=== PATIENT | male | born 1945 | race Two or more races ===

== ENCOUNTER 2023-12-20 08:34 | Inpatient (IN) | payer OTHER ==
[~2023-12-20] VITALS: Ht 170.2 cm; Wt 72.4 kg
[2023-12-20 10:45] VITALS: BP 139/60; TEMP 99.2; O2SAT 96
[2023-12-20] MEDS ORDERED: MOM 30ML SUSPENSION UDC PO PRN (10:45)
[2023-12-20] MEDS ORDERED: ONDANSETRON 4MG TAB PO PRN (10:45)
[2023-12-20] MEDS ORDERED: FLEET ENEMA PR PRN (10:45)
[2023-12-20] MEDS ORDERED: BISACODYL 10MG SUPP PR PRN (10:45)
[2023-12-20] MEDS ORDERED: MAALOX 30 ML SUSP *UDC PO PRN (10:45)
[2023-12-20] MEDS ORDERED: SIMETHICONE 80MG CHEW TAB PO PRN (10:45)
[2023-12-20] MEDS ORDERED: ALBUTEROL SULFATE 2.5MG/0.5ML INH NEB SOLN NEB PRN (10:55)
[2023-12-20] MEDS ORDERED: FLOM0.4C39 PO (14:12)
[2023-12-20] MEDS ORDERED: ENTR1TAB4 PO (14:12)
[2023-12-20] MEDS ORDERED: ASPI81TA26 PO (14:12)
[2023-12-20] MEDS ORDERED: VENTAER INH (14:12)
[2023-12-20] MEDS ORDERED: ELIQ5TAB PO (14:12)
[2023-12-20] MEDS ORDERED: ALBU2.5V10 INH (14:12)
[2023-12-20] MEDS ORDERED: CARV12.5 PO (14:12)
[2023-12-20] MEDS ORDERED: SENN-186 PO (14:12)
[2023-12-20] MEDS ORDERED: BISA10SU4 PR (14:12)
[2023-12-20] MEDS ORDERED: MIRA3350 PO (14:12)
[2023-12-20] MEDS ORDERED: SIME40DR23 PO (14:12)
[2023-12-20] MEDS ORDERED: FENO48TA8 PO (14:12)
[2023-12-20] MEDS ORDERED: HOME MED LIST COMPLETE! XX SCH (14:15)
[2023-12-20] MEDS: BISACODYL 10MG SUPP PR SCH (14:48)
[2023-12-20 20:00] VITALS: BP 113/53; TEMP 98.7; O2SAT 95
[2023-12-20] MEDS: DOCUSATE SODIUM 100MG CAPSULE PO SCH (20:53)
[2023-12-20] MEDS: APIXABAN 5 MG TAB (ELIQUIS) PO SCH (20:54)
[2023-12-20] MEDS: CARVedilol 12.5 MG TAB PO SCH (20:54)
[2023-12-20] MEDS: TAMSULOSIN 0.4 MG CAP PO SCH (20:55)
[2023-12-20] MEDS: ENTRESTO 97-103MG TABLET (SACUBITRIL/VALSARTAN) PO SCH (20:55)
[2023-12-20] MEDS: SENNA 8.6 MG TAB (SENOKOT) PO SCH (20:55)
[2023-12-21 04:00] VITALS: BP 115/55; TEMP 98.6; O2SAT 95
[2023-12-21 07:45] LABS: BASO # 0.1 10^3/uL (0.0-0.2); BASO % 0.4 % (0.0-1.0); EOS # 0.1 10^3/uL (0.0-0.5); EOS % 0.8 % (0.0-3.0); HEMATOCRIT 31.5 % (42.0-52.0); HEMOGLOBIN 10.1 g/dl (13.5-17.5); LYMPH # 1.2 10^3/uL (1.5-5.0); MEAN CORPUSCULAR HGB CONC 32.1 g/dl (32.0-36.5); MEAN CORPUSCULAR VOLUME 99.7 fl (80.0-96.0); MONO # 0.9 10^3/uL (0.0-0.8); NEUTROPHILS % 81.2 % (36.0-66.0); PLATELET COUNT, AUTOMATED 435 10^3/uL (150-450); RED BLOOD COUNT 3.16 10^6/uL (4.30-6.10); WHITE BLOOD COUNT 12.3 10^3/uL (4.0-10.0)
[2023-12-21 08:16] LABS: BLOOD UREA NITROGEN 13 MG/DL (9-23); CALCIUM LEVEL 7.9 MG/DL (8.3-10.6); CARBON DIOXIDE LEVEL 28 MMOL/L (20-31); CHLORIDE LEVEL 105 MMOL/L (98-107); CREATININE FOR GFR 0.68 MG/DL (0.70-1.30); GLOMERULAR FILTRATION RATE > 60.0 (>42); GLUCOSE, FASTING 108 MG/DL (74-106); POTASSIUM SERUM 4.3 MMOL/L (3.5-5.1); SODIUM LEVEL 136 MMOL/L (136-145)
[2023-12-21] MEDS ORDERED: TAMSULOSIN 0.4 MG CAP PO SCH (09:00)
[2023-12-21] MEDS: FLUBLOK(EGGFREE) TRIVAL(24-25) VACCINE PF 0.5ML SYRINGE 18YRS & OLDER IM.IMMUN ONE (09:00)
[2023-12-21] MEDS: OMEPRAZOLE 20MG CAP PO SCH (09:22)
[2023-12-21] MEDS: ASPIRIN 81MG ENTERIC TABLET PO SCH (09:23)
[2023-12-21] MEDS: ACETAMINOPHEN 500 MG TAB PO PRN (09:23)
[2023-12-21] MEDS: FENOFIBRATE 48MG TABLET (TRICOR) PO SCH (09:24)
[2023-12-21] MEDS: MIRALAX *UNIT DOSE* 17GM PACKET PO SCH (09:24)
[2023-12-21 12:00] VITALS: BP 99/55; TEMP 97.4; O2SAT 96
[2023-12-21 20:00] VITALS: BP 125/58; TEMP 99; O2SAT 90
[2023-12-22 04:00] VITALS: BP 127/62; TEMP 98.6; O2SAT 96
[2023-12-22 06:04] LABS: BASO % 0.4 % (0.0-1.0); EOS # 0.1 10^3/uL (0.0-0.5); EOS % 1.3 % (0.0-3.0); HEMATOCRIT 27.3 % (42.0-52.0); LYMPH # 1.1 10^3/uL (1.5-5.0); LYMPH % 10.5 % (24.0-44.0); MEAN CORPUSCULAR HEMOGLOBIN 32.1 pg (27.0-33.0); MEAN CORPUSCULAR VOLUME 97.5 fl (80.0-96.0); MONO # 0.7 10^3/uL (0.0-0.8); MONO % 6.8 % (2.0-8.0); NEUTROPHILS # 8.5 10^3/uL (1.5-8.5); NEUTROPHILS % 80.6 % (36.0-66.0); PLATELET COUNT, AUTOMATED 401 10^3/uL (150-450); WHITE BLOOD COUNT 10.5 10^3/uL (4.0-10.0)
[2023-12-22] MEDS: ASPIRIN 81MG CHEW TABLET PO SCH (08:27)
[2023-12-22] MEDS ORDERED: E-Z-PAQUE 96% w/w SUSP 176GM BTL As Ordered ONE (11:30)
[2023-12-22] MEDS ORDERED: SIMETHICONE 80MG CHEW TAB PO PRN (11:30)
[2023-12-22] MEDS ORDERED: VARIBAR PUDDING 40% w/v 230ML TUBE As Ordered ONE (11:30)
[2023-12-22] MEDS ORDERED: BARIUM SULFATE 700 MG TABLET (E-Z-DISK) As Ordered ONE (11:30)
[2023-12-22] MEDS ORDERED: VARIBAR NECTAR 40% w/v 240ML SUSP BTL As Ordered ONE (11:30)
[2023-12-22 12:00] VITALS: BP 103/53; TEMP 97.9; O2SAT 84
[2023-12-22 12:30] VITALS: O2SAT 95
[2023-12-22] MEDS: BACTRIM 160MG/800MG DS TAB PO ONE (12:37)
[2023-12-22 19:34] VITALS: BP 145/66; TEMP 99.2; O2SAT 95
[2023-12-22] MEDS: BACTRIM 160MG/800MG DS TAB PO SCH (20:20)
[2023-12-23 04:40] VITALS: BP 122/56; TEMP 97.7; O2SAT 93
[2023-12-23 12:00] VITALS: BP 133/74; TEMP 98.1; O2SAT 97
[2023-12-23 19:49] VITALS: BP 135/61; TEMP 97.9; O2SAT 97
[2023-12-24 04:48] VITALS: BP 128/59; TEMP 97.9; O2SAT 93
[2023-12-24 12:00] VITALS: BP 95/46; TEMP 98.5; O2SAT 95
[2023-12-24 13:24] VITALS: BP 114/56
[2023-12-24 20:03] VITALS: BP 140/63; TEMP 98.6; O2SAT 94
[2023-12-25 04:37] VITALS: BP 145/63; TEMP 97.6; O2SAT 94
[2023-12-25 12:00] VITALS: BP 102/58; TEMP 97.7; O2SAT 88
[2023-12-25 20:00] VITALS: BP 130/66; TEMP 98.6; O2SAT 92
[2023-12-26 04:00] VITALS: BP 124/58; TEMP 98.6; O2SAT 91
[2023-12-26 12:00] VITALS: BP 102/48; TEMP 97.4; O2SAT 88
[2023-12-26] MEDS: D5W/0.45% SODIUM CHLORIDE 1,000 ML IV SCH (12:43)
[2023-12-26 20:00] VITALS: BP 142/63; TEMP 97.6; O2SAT 95
[2023-12-27 04:00] VITALS: BP 115/57; TEMP 97.7; O2SAT 93
[2023-12-27 12:00] VITALS: BP 91/52; TEMP 97.5; O2SAT 94
[2023-12-27 17:30] VITALS: BP 141/65; O2SAT 94
[2023-12-27 20:18] VITALS: BP 132/66; TEMP 98.1; O2SAT 95
[2023-12-28 04:32] VITALS: BP 135/68; TEMP 98; O2SAT 95
[2023-12-28 12:00] VITALS: BP 116/56; TEMP 97.6; O2SAT 95
[2023-12-28 20:00] VITALS: BP 130/57; TEMP 97.6; O2SAT 95
[2023-12-29 04:00] VITALS: BP 114/56; TEMP 97.3; O2SAT 94
[2023-12-29 12:00] VITALS: TEMP 96.7; O2SAT 90
[2023-12-29] MEDS: GASTROGRAFIN SOLUTION 30ML PO SCH (12:16)
[2023-12-29 12:24] LABS: BASO % 0.4 % (0.0-1.0); EOS # 0.1 10^3/uL (0.0-0.5); EOS % 1.8 % (0.0-3.0); HEMATOCRIT 33.8 % (42.0-52.0); HEMOGLOBIN 11.2 g/dl (13.5-17.5); LYMPH # 1.1 10^3/uL (1.5-5.0); LYMPH % 15.4 % (24.0-44.0); MEAN CORPUSCULAR HEMOGLOBIN 32.6 pg (27.0-33.0); MEAN CORPUSCULAR HGB CONC 33.1 g/dl (32.0-36.5); MEAN CORPUSCULAR VOLUME 98.3 fl (80.0-96.0); MONO # 0.5 10^3/uL (0.0-0.8); MONO % 7.1 % (2.0-8.0); NEUTROPHILS # 5.4 10^3/uL (1.5-8.5); NEUTROPHILS % 74.7 % (36.0-66.0); PLATELET COUNT, AUTOMATED 489 10^3/uL (150-450); RED BLOOD COUNT 3.44 10^6/uL (4.30-6.10); WHITE BLOOD COUNT 7.2 10^3/uL (4.0-10.0)
[2023-12-29 12:55] LABS: BLOOD UREA NITROGEN 5 MG/DL (9-23); CALCIUM LEVEL 8.4 MG/DL (8.3-10.6); CARBON DIOXIDE LEVEL 25 MMOL/L (20-31); CHLORIDE LEVEL 104 MMOL/L (98-107); GLOMERULAR FILTRATION RATE > 60.0 (>42); GLUCOSE, FASTING 106 MG/DL (74-106); POTASSIUM SERUM 3.5 MMOL/L (3.5-5.1); SODIUM LEVEL 138 MMOL/L (136-145)
[2023-12-29] MEDS ORDERED: ISOVUE-370 76% 100ML VIAL As Ordered ONE (13:56)
[2023-12-29 20:00] VITALS: BP 128/64; TEMP 98.1; O2SAT 96
[2023-12-29] MEDS ORDERED: GLUCOSE 4 GM CHEW PO PRN (23:00)
[2023-12-29] MEDS ORDERED: DEXTROSE 50% 50ML SYRINGE IV PRN (23:00)
[2023-12-29] MEDS ORDERED: GLUCAGON INJ 1MG VIAL SC PRN (23:00)
[2023-12-29] MEDS: D5W/0.45% SODIUM CHLORIDE 1,000 ML IV SCH (23:46)
[2023-12-30 04:00] VITALS: BP 134/63; TEMP 97.8; O2SAT 96
[2023-12-30 06:48] LABS: BASO % 0.7 % (0.0-1.0); EOS # 0.2 10^3/uL (0.0-0.5); EOS % 3.1 % (0.0-3.0); HEMATOCRIT 28.4 % (42.0-52.0); LYMPH # 1.1 10^3/uL (1.5-5.0); LYMPH % 20.5 % (24.0-44.0); MEAN CORPUSCULAR HEMOGLOBIN 30.9 pg (27.0-33.0); MEAN CORPUSCULAR HGB CONC 31.7 g/dl (32.0-36.5); MEAN CORPUSCULAR VOLUME 97.6 fl (80.0-96.0); MONO # 0.4 10^3/uL (0.0-0.8); MONO % 7.8 % (2.0-8.0); NEUTROPHILS # 3.7 10^3/uL (1.5-8.5); NEUTROPHILS % 67.5 % (36.0-66.0); RED BLOOD COUNT 2.91 10^6/uL (4.30-6.10); WHITE BLOOD COUNT 5.5 10^3/uL (4.0-10.0)
[2023-12-30 06:50] LABS: PLATELET COUNT, AUTOMATED 396 10^3/uL (150-450)
[2023-12-30 07:04] LABS: ALBUMIN 1.7 G/DL (3.2-5.2); ALKALINE PHOSPHATASE 73 U/L (40-129); ALT/SGPT 16 U/L (7.0-40); AST/SGOT 17 U/L (<34); BILIRUBIN,TOTAL 0.3 MG/DL (0.3-1.2); BLOOD UREA NITROGEN < 5 MG/DL (9-23); CALCIUM LEVEL 7.9 MG/DL (8.3-10.6); CARBON DIOXIDE LEVEL 28 MMOL/L (20-31); CHLORIDE LEVEL 106 MMOL/L (98-107); CREATININE FOR GFR 0.64 MG/DL (0.70-1.30); GLOMERULAR FILTRATION RATE > 60.0 (>42); GLUCOSE, FASTING 123 MG/DL (74-106); MAGNESIUM LEVEL 1.7 MG/DL (1.8-2.4); POTASSIUM SERUM 2.9 MMOL/L (3.5-5.1); SODIUM LEVEL 139 MMOL/L (136-145); TOTAL PROTEIN 4.5 G/DL (5.7-8.2)
[2023-12-30] MEDS: POTASSIUM CHLORIDE 10MEQ SR TABLET PO SCH (08:28)
[2023-12-30] MEDS: KCL 10MEQ/100ML SWI (KRUN) 10 MEQ in IV 1 EA IV SCH (08:37)
[2023-12-30] MEDS ORDERED: KCL 40MEQ IN D5/0.45NS 1000ML 1,000 ML IV SCH (10:00)
[2023-12-30] MEDS ORDERED: FLEET ENEMA PR PRN (10:15)
[2023-12-30] MEDS: AMINO AC/ELECTROLYTE/DEX/CALC 1,000 ML IV SCH (11:40)
[2023-12-30 12:00] VITALS: BP 128/58; TEMP 98.1; O2SAT 97
[2023-12-30] MEDS: FUROSEMIDE 40MG/4ML VIAL IV ONE (15:08)
[2023-12-30 17:47] LABS: BLOOD UREA NITROGEN < 5 MG/DL (9-23); CALCIUM LEVEL 8.2 MG/DL (8.3-10.6); CARBON DIOXIDE LEVEL 29 MMOL/L (20-31); CHLORIDE LEVEL 104 MMOL/L (98-107); CREATININE FOR GFR 0.62 MG/DL (0.70-1.30); GLOMERULAR FILTRATION RATE > 60.0 (>42); GLUCOSE, FASTING 119 MG/DL (74-106); POTASSIUM SERUM 3.7 MMOL/L (3.5-5.1); SODIUM LEVEL 138 MMOL/L (136-145)
[2023-12-30] MEDS: FAT EMULSION IV 250 ML IV ONE (17:51)
[2023-12-30 20:00] VITALS: BP 140/67; TEMP 98.4; O2SAT 92; O2SAT 97
[2023-12-31 04:00] VITALS: BP 145/64; TEMP 98.1; O2SAT 92
[2023-12-31] MEDS: FUROSEMIDE 40MG/4ML VIAL IV ONE (09:34)
[2023-12-31 12:00] VITALS: BP 122/60; TEMP 97.2; O2SAT 98
[2023-12-31] MEDS: FAT EMULSION IV 250 ML IV ONE (18:14)
[2023-12-31 19:54] VITALS: BP 148/69; TEMP 98.1; O2SAT 90
[2024-01-01 05:07] VITALS: BP 155/69; TEMP 97.2; O2SAT 94
[2024-01-01 06:46] LABS: BASO % 0.4 % (0.0-1.0); EOS # 0.2 10^3/uL (0.0-0.5); EOS % 2.1 % (0.0-3.0); HEMATOCRIT 29.5 % (42.0-52.0); HEMOGLOBIN 9.6 g/dl (13.5-17.5); LYMPH # 1.1 10^3/uL (1.5-5.0); LYMPH % 15.6 % (24.0-44.0); MEAN CORPUSCULAR HEMOGLOBIN 31.6 pg (27.0-33.0); MEAN CORPUSCULAR HGB CONC 32.5 g/dl (32.0-36.5); MONO # 0.6 10^3/uL (0.0-0.8); NEUTROPHILS # 5.4 10^3/uL (1.5-8.5); NEUTROPHILS % 73.6 % (36.0-66.0); PLATELET COUNT, AUTOMATED 408 10^3/uL (150-450); RED BLOOD COUNT 3.04 10^6/uL (4.30-6.10); WHITE BLOOD COUNT 7.3 10^3/uL (4.0-10.0)
[2024-01-01 07:31] LABS: ALKALINE PHOSPHATASE 85 U/L (40-129); ALT/SGPT 19 U/L (7.0-40); AST/SGOT 22 U/L (<34); BILIRUBIN,TOTAL 0.2 MG/DL (0.3-1.2); BLOOD UREA NITROGEN 9 MG/DL (9-23); CARBON DIOXIDE LEVEL 29 MMOL/L (20-31); CHLORIDE LEVEL 102 MMOL/L (98-107); GLOMERULAR FILTRATION RATE > 60.0 (>42); GLUCOSE, FASTING 156 MG/DL (74-106); MAGNESIUM LEVEL 1.7 MG/DL (1.8-2.4); PHOSPHORUS LEVEL 3.2 MG/DL (2.4-5.1); POTASSIUM SERUM 4.3 MMOL/L (3.5-5.1); SODIUM LEVEL 136 MMOL/L (136-145); TOTAL PROTEIN 4.8 G/DL (5.7-8.2)
[2024-01-01 12:00] VITALS: BP 110/59; TEMP 97.2; O2SAT 92
[2024-01-01] MEDS: FAT EMULSION IV 250 ML IV ONE (17:42)
[2024-01-01 20:09] VITALS: BP 139/65; TEMP 96.9; O2SAT 90
[2024-01-02 04:51] VITALS: BP 138/61; TEMP 97.6; O2SAT 92
[2024-01-02 07:40] VITALS: BP 134/60
[2024-01-02] MEDS: FAT EMULSION IV 250 ML IV ONE (17:55)
[2024-01-02 20:05] VITALS: BP 150/66; TEMP 97.2; O2SAT 93
[2024-01-03 04:00] VITALS: BP 151/70; TEMP 97.9; O2SAT 96
[2024-01-03 12:00] VITALS: BP 139/65; TEMP 97.9; O2SAT 92
[2024-01-03] MEDS: FAT EMULSION IV 250 ML IV ONE (18:39)
[2024-01-03 20:00] VITALS: BP 158/74; TEMP 98.4; O2SAT 92
[2024-01-04 04:00] VITALS: BP 134/64; TEMP 98.7; O2SAT 92
[2024-01-04] MEDS ORDERED: fentaNYL 100 MCG/2 ML INJECTION IV PRN ×2 (07:35→10:05)
[2024-01-04] MEDS: ALBUTEROL SULFATE 2.5MG/0.5ML INH NEB SOLN INH ONE ×2 (07:35→10:05)
[2024-01-04] MEDS ORDERED: ONDANSETRON 4MG 2ML VIAL IV PRN ×2 (07:35→10:05)
[2024-01-04] MEDS ORDERED: METOCLOPRAMIDE INJ 10MG/2ML VIAL IV PRN ×2 (07:35→10:05)
[2024-01-04] MEDS ORDERED: oxyCODONE 5MG TAB PO PRN (07:35)
[2024-01-04] MEDS ORDERED: HYDROMORPHONE HCL 0.5 MG/ 0.5 ML SYRINGE IV PRN ×2 (07:35→10:05)
[2024-01-04] MEDS: FLEET ENEMA PR ONE (08:40)
[2024-01-04] MEDS: LR 1,000 ML IV SCH (10:05)
[2024-01-04] MEDS ORDERED: propofoL 200 MG/20 ML VIAL As Ordered ONE (11:46)
[2024-01-04] MEDS ORDERED: LIDOCAINE 2% 100MG/5ML SDV (FOR ANES.) As Ordered ONE (11:46)
[2024-01-04] MEDS ORDERED: PHENYLephrine 500MCG 5ML (100MCG/ML) SYRINGE As Ordered ONE (11:46)
[2024-01-04 12:00] VITALS: BP_SYST 128; BP_SYST 140; BP_DIAS 64; BP_DIAS 67; TEMP 99.3; O2SAT 93
[2024-01-04] MEDS: FAT EMULSION IV 250 ML IV ONE (18:00)
[2024-01-04 20:00] VITALS: BP 152/70; TEMP 98.5; O2SAT 90
[2024-01-05 04:00] VITALS: BP 118/58; TEMP 98.1; O2SAT 91
[2024-01-05 12:00] VITALS: BP 144/65; TEMP 98.3; O2SAT 96
[2024-01-05] MEDS: DICLOFENAC EPOLAMINE 1.3% PATCH TOP SCH (12:38)
[2024-01-05] MEDS: D5W 1,000 ML IV SCH (14:18)
[2024-01-05] MEDS: FAT EMULSION IV 250 ML IV ONE (18:36)
[2024-01-05 19:39] VITALS: BP 162/74; TEMP 97.6; O2SAT 94
[2024-01-06 04:13] VITALS: BP 119/56; TEMP 98.1; O2SAT 94
[2024-01-06 12:00] VITALS: BP 138/63; TEMP 98.3; O2SAT 96
[2024-01-06] MEDS: FAT EMULSION IV 250 ML IV ONE (17:31)
[2024-01-06 20:00] VITALS: BP 158/71; TEMP 98.2; O2SAT 94
[2024-01-07 04:00] VITALS: BP 116/57; TEMP 97.9; O2SAT 96
[2024-01-07] MEDS: MAG SULF 1GM/100ML (MAG RUN) 1 GM in IV 1 EA IV ONE (11:04)
[2024-01-07 12:00] VITALS: BP 102/46; TEMP 97.9; O2SAT 97
[2024-01-07 14:45] LABS: BASO % 0.5 % (0.0-1.0); EOS # 0.1 10^3/uL (0.0-0.5); EOS % 2.3 % (0.0-3.0); HEMATOCRIT 31.1 % (42.0-52.0); HEMOGLOBIN 10.3 g/dl (13.5-17.5); LYMPH # 1.1 10^3/uL (1.5-5.0); LYMPH % 19.4 % (24.0-44.0); MEAN CORPUSCULAR HEMOGLOBIN 31.9 pg (27.0-33.0); MEAN CORPUSCULAR HGB CONC 33.1 g/dl (32.0-36.5); MEAN CORPUSCULAR VOLUME 96.3 fl (80.0-96.0); MONO # 0.5 10^3/uL (0.0-0.8); MONO % 9.4 % (2.0-8.0); NEUTROPHILS # 3.9 10^3/uL (1.5-8.5); NEUTROPHILS % 68.2 % (36.0-66.0); PLATELET COUNT, AUTOMATED 284 10^3/uL (150-450); RED BLOOD COUNT 3.23 10^6/uL (4.30-6.10); WHITE BLOOD COUNT 5.8 10^3/uL (4.0-10.0)
[2024-01-07 15:15] LABS: ALBUMIN 2.1 G/DL (3.2-5.2); ALKALINE PHOSPHATASE 96 U/L (40-129); ALT/SGPT 14 U/L (7.0-40); AST/SGOT 14 U/L (<34); BILIRUBIN,TOTAL 0.3 MG/DL (0.3-1.2); BLOOD UREA NITROGEN 10 MG/DL (9-23); CALCIUM LEVEL 8.4 MG/DL (8.3-10.6); CARBON DIOXIDE LEVEL 26 MMOL/L (20-31); CHLORIDE LEVEL 103 MMOL/L (98-107); CREATININE FOR GFR 0.67 MG/DL (0.70-1.30); GLOMERULAR FILTRATION RATE > 60.0 (>42); GLUCOSE, FASTING 124 MG/DL (74-106); SODIUM LEVEL 133 MMOL/L (136-145); TOTAL PROTEIN 5.3 G/DL (5.7-8.2)
[2024-01-07] MEDS: FAT EMULSION IV 250 ML IV ONE (17:23)
[2024-01-07 20:00] VITALS: BP 131/63; TEMP 98.9; O2SAT 96
[2024-01-08 04:00] VITALS: BP 122/57; TEMP 98.5; O2SAT 95
[2024-01-08 07:26] LABS: BASO # 0.1 10^3/uL (0.0-0.2); BASO % 0.8 % (0.0-1.0); EOS # 0.2 10^3/uL (0.0-0.5); HEMATOCRIT 31.2 % (42.0-52.0); HEMOGLOBIN 10.3 g/dl (13.5-17.5); LYMPH % 17.1 % (24.0-44.0); MEAN CORPUSCULAR HEMOGLOBIN 31.8 pg (27.0-33.0); MEAN CORPUSCULAR VOLUME 96.3 fl (80.0-96.0); MONO # 0.5 10^3/uL (0.0-0.8); MONO % 7.5 % (2.0-8.0); NEUTROPHILS # 4.3 10^3/uL (1.5-8.5); NEUTROPHILS % 71.3 % (36.0-66.0); PLATELET COUNT, AUTOMATED 294 10^3/uL (150-450); RED BLOOD COUNT 3.24 10^6/uL (4.30-6.10)
[2024-01-08 07:33] LABS: PHOSPHORUS LEVEL 3.9 MG/DL (2.4-5.1)
[2024-01-08 08:43] VITALS: BP 131/60
[2024-01-08 10:22] LABS: BLOOD UREA NITROGEN 10 MG/DL (9-23); CALCIUM LEVEL 8.4 MG/DL (8.3-10.6); CARBON DIOXIDE LEVEL 26 MMOL/L (20-31); CHLORIDE LEVEL 104 MMOL/L (98-107); CREATININE FOR GFR 0.59 MG/DL (0.70-1.30); GLOMERULAR FILTRATION RATE > 60.0 (>42); GLUCOSE, FASTING 137 MG/DL (74-106); MAGNESIUM LEVEL 2.1 MG/DL (1.8-2.4); POTASSIUM SERUM 4.7 MMOL/L (3.5-5.1); SODIUM LEVEL 137 MMOL/L (136-145)
[2024-01-08] MEDS ORDERED: ACET-683 PO (11:38)
[2024-01-08] MEDS ORDERED: POTA-136 PO (11:38)
[2024-01-08] MEDS ORDERED: DICL1PAT6 TOP (11:38)
[2024-01-08] MEDS ORDERED: OMEP-173 PO (11:38)
[2024-01-08] MEDS ORDERED: FLOM0.4C39 PO (11:38)
[2024-01-08] MEDS ORDERED: LIDOCAINE 1% MDV 20ML VIAL As Ordered ONE (11:50)
[2024-01-08 12:00] VITALS: BP 128/62; TEMP 97.6; O2SAT 97
[2024-01-08] MEDS ORDERED: AMINO AC/ELECTROLYTE/DEX/CALC 1,000 ML IV SCH (18:00)
[2024-01-08] MEDS ORDERED: FAT EMULSION IV 250 ML IV ONE ×2 (18:00)
[2024-01-08] MEDS ORDERED: INSULIN LISPRO (NovoLOG) PER UNIT SC SCH (18:00)
== END 2024-01-08 15:00 | disposition short-term general hospital (02) | DRG 64 ==
LOC: EEVIPCON 10:35 → M PM&R 10:35
PROVIDERS: ADMIT Physical Medicine & Rehabilitation; ATTEND Physical Medicine & Rehabilitation
PROC: 0DJD8ZZ Inspection of Lower Intestinal Tract, Via Natural or Artificial Opening Endoscopic (ICD-10-PCS; 2024-01-04)
PROC: 02HV33Z Insertion of Infusion Device into Superior Vena Cava, Percutaneous Approach (ICD-10-PCS; principal; 2024-01-08 12:00)
DX: I63.512 Cerebral infarction due to unspecified occlusion or stenosis of left middle cerebral artery (principal); J96.01 Acute respiratory failure with hypoxia; K56.7 Ileus, unspecified; K59.39 Other megacolon; N39.0 Urinary tract infection, site not specified; I50.22 Chronic systolic (congestive) heart failure; G81.91 Hemiplegia, unspecified affecting right dominant side; E46 Unspecified protein-calorie malnutrition; B96.20 Unspecified Escherichia coli [E. coli] as the cause of diseases classified elsewhere; I48.0 Paroxysmal atrial fibrillation; E87.6 Hypokalemia; R19.7 Diarrhea, unspecified; T36.95XA Adverse effect of unspecified systemic antibiotic, initial encounter; I11.0 Hypertensive heart disease with heart failure; I25.10 Atherosclerotic heart disease of native coronary artery without angina pectoris; Z74.1 Need for assistance with personal care; I25.2 Old myocardial infarction; E78.5 Hyperlipidemia, unspecified; N40.0 Benign prostatic hyperplasia without lower urinary tract symptoms; R33.9 Retention of urine, unspecified; R13.10 Dysphagia, unspecified; R31.9 Hematuria, unspecified; Z74.09 Other reduced mobility; Z95.5 Presence of coronary angioplasty implant and graft; Z79.01 Long term (current) use of anticoagulants; Z90.49 Acquired absence of other specified parts of digestive tract; Z79.899 Other long term (current) drug therapy; Z79.82 Long term (current) use of aspirin

== ENCOUNTER 2024-01-08 12:00 | Inpatient (IN) | payer OTHER ==
[~2024-01-08] VITALS: Ht 170.2 cm; Wt 74.0 kg
[~2024-01-08 12:00] MED LIST: ACET-683 PO; ALBU2.5V10 INH; ASPI81TA26 PO; BISA10SU4 PR; CARV12.5 PO; DICL1PAT6 TOP; ELIQ5TAB PO; ENTR1TAB4 PO; FENO48TA8 PO; FLOM0.4C39 PO; MIRA3350 PO; OMEP-173 PO; POTA-136 PO; SENN-186 PO; SIME40DR23 PO; VENTAER INH
[2024-01-08 15:32] VITALS: BP 130/52; TEMP 96.8; O2SAT 94
[2024-01-08 15:51] LABS: ALBUMIN 2.2 G/DL (3.2-5.2); BILIRUBIN,DIRECT 0.1 MG/DL (<0.4); BILIRUBIN,TOTAL 0.2 MG/DL (0.3-1.2); CALCIUM LEVEL 8.5 MG/DL (8.3-10.6); MAGNESIUM LEVEL 1.9 MG/DL (1.8-2.4); PHOSPHORUS LEVEL 4.1 MG/DL (2.4-5.1); TOTAL PROTEIN 5.2 G/DL (5.7-8.2)
[2024-01-08 17:18] LABS: PREALBUMIN 14.6 MG/DL (10.0-40.0)
[2024-01-08] MEDS: INSULIN LISPRO (NovoLOG) PER UNIT SC SCH (17:57)
[2024-01-08] MEDS: AMINO AC/ELECTROLYTE/DEX/CALC 1,000 ML IV SCH (18:37)
[2024-01-08] MEDS: FAT EMULSION IV 250 ML IV ONE (18:37)
[2024-01-08 19:42] VITALS: BP 134/65; TEMP 97.3; O2SAT 95
[2024-01-08] MEDS: DOCUSATE SODIUM 100MG CAPSULE PO SCH (20:39)
[2024-01-08] MEDS: TAMSULOSIN 0.4 MG CAP PO SCH (20:39)
[2024-01-08] MEDS: CARVedilol 12.5 MG TAB PO SCH (20:39)
[2024-01-08] MEDS: FENOFIBRATE 48MG TABLET (TRICOR) PO SCH (20:39)
[2024-01-08] MEDS: APIXABAN 5 MG TAB (ELIQUIS) PO SCH (20:39)
[2024-01-08 22:24] VITALS: BP 134/65; TEMP 97.3; O2SAT 95
[2024-01-09 04:20] VITALS: BP 137/54; TEMP 97.9; O2SAT 94
[2024-01-09 05:53] LABS: BASO % 0.4 % (0.0-1.0); EOS # 0.2 10^3/uL (0.0-0.5); EOS % 2.9 % (0.0-3.0); HEMATOCRIT 31.1 % (42.0-52.0); HEMOGLOBIN 10.2 g/dl (13.5-17.5); LYMPH # 1.1 10^3/uL (1.5-5.0); LYMPH % 15.4 % (24.0-44.0); MEAN CORPUSCULAR HEMOGLOBIN 31.6 pg (27.0-33.0); MEAN CORPUSCULAR HGB CONC 32.8 g/dl (32.0-36.5); MEAN CORPUSCULAR VOLUME 96.3 fl (80.0-96.0); MONO # 0.5 10^3/uL (0.0-0.8); MONO % 7.1 % (2.0-8.0); NEUTROPHILS # 5.1 10^3/uL (1.5-8.5); NEUTROPHILS % 73.6 % (36.0-66.0); PLATELET COUNT, AUTOMATED 312 10^3/uL (150-450); RED BLOOD COUNT 3.23 10^6/uL (4.30-6.10); WHITE BLOOD COUNT 6.9 10^3/uL (4.0-10.0)
[2024-01-09 06:27] LABS: ALBUMIN 2.1 G/DL (3.2-5.2); ALKALINE PHOSPHATASE 95 U/L (40-129); ALT/SGPT 19 U/L (7.0-40); AST/SGOT 25 U/L (<34); BILIRUBIN,TOTAL 0.3 MG/DL (0.3-1.2); BLOOD UREA NITROGEN 11 MG/DL (9-23); CALCIUM LEVEL 8.4 MG/DL (8.3-10.6); CARBON DIOXIDE LEVEL 28 MMOL/L (20-31); CHLORIDE LEVEL 103 MMOL/L (98-107); CREATININE FOR GFR 0.63 MG/DL (0.70-1.30); GLOMERULAR FILTRATION RATE > 60.0 (>42); GLUCOSE, FASTING 119 MG/DL (74-106); MAGNESIUM LEVEL 1.8 MG/DL (1.8-2.4); PHOSPHORUS LEVEL 3.7 MG/DL (2.4-5.1); POTASSIUM SERUM 4.1 MMOL/L (3.5-5.1); SODIUM LEVEL 134 MMOL/L (136-145); TOTAL PROTEIN 5.2 G/DL (5.7-8.2)
[2024-01-09] MEDS: BISACODYL 10MG SUPP PR SCH (09:00)
[2024-01-09] MEDS: ASPIRIN 81MG CHEW TABLET PO SCH (09:58)
[2024-01-09 12:00] VITALS: BP 126/55; TEMP 97.5; O2SAT 95
[2024-01-09] MEDS: FAT EMULSION IV 250 ML IV ONE (18:13)
[2024-01-09] MEDS: AMINO AC/ELECTROLYTE/DEX/CALC 1,000 ML IV SCH (18:13)
[2024-01-09] MEDS: INSULIN LISPRO (NovoLOG) PER UNIT SC SCH (18:37)
[2024-01-09 20:43] VITALS: BP 123/57; TEMP 97.7; O2SAT 95
[2024-01-10] VITALS (16 sets, daily range): BP systolic 60–134; BP diastolic 32–60; TEMP 97–98; O2SAT 88–100
[2024-01-10] MEDS: ACETAMINOPHEN 500 MG TAB PO PRN (00:02)
[2024-01-10 06:08] LABS: BASO % 0.8 % (0.0-1.0); EOS # 0.2 10^3/uL (0.0-0.5); EOS % 3.1 % (0.0-3.0); HEMOGLOBIN 10.5 g/dl (13.5-17.5); LYMPH # 1.1 10^3/uL (1.5-5.0); LYMPH % 22.2 % (24.0-44.0); MEAN CORPUSCULAR HEMOGLOBIN 31.5 pg (27.0-33.0); MEAN CORPUSCULAR HGB CONC 32.8 g/dl (32.0-36.5); MEAN CORPUSCULAR VOLUME 96.1 fl (80.0-96.0); MONO # 0.4 10^3/uL (0.0-0.8); MONO % 8.3 % (2.0-8.0); NEUTROPHILS # 3.3 10^3/uL (1.5-8.5); NEUTROPHILS % 65.2 % (36.0-66.0); PLATELET COUNT, AUTOMATED 305 10^3/uL (150-450); RED BLOOD COUNT 3.33 10^6/uL (4.30-6.10); WHITE BLOOD COUNT 5.1 10^3/uL (4.0-10.0)
[2024-01-10 06:40] LABS: ALBUMIN 2.2 G/DL (3.2-5.2); ALKALINE PHOSPHATASE 92 U/L (40-129); ALT/SGPT 22 U/L (7.0-40); AST/SGOT 21 U/L (<34); BILIRUBIN,TOTAL 0.3 MG/DL (0.3-1.2); BLOOD UREA NITROGEN 13 MG/DL (9-23); CALCIUM LEVEL 8.7 MG/DL (8.3-10.6); CARBON DIOXIDE LEVEL 28 MMOL/L (20-31); CHLORIDE LEVEL 103 MMOL/L (98-107); GLOMERULAR FILTRATION RATE > 60.0 (>42); GLUCOSE, FASTING 131 MG/DL (74-106); MAGNESIUM LEVEL 1.8 MG/DL (1.8-2.4); POTASSIUM SERUM 3.9 MMOL/L (3.5-5.1); SODIUM LEVEL 137 MMOL/L (136-145); TOTAL PROTEIN 5.3 G/DL (5.7-8.2)
[2024-01-10] MEDS: FAT EMULSION IV 250 ML IV ONE (18:06)
[2024-01-10] MEDS: MULTIVITAMIN -ADULT INJECTION 10 ML, ZINC/COPPER/MANGANESE/SELENIUM 1 ML in AMINO AC/EL... IV SCH (18:07)
[2024-01-10] MEDS: INSULIN LISPRO (NovoLOG) PER UNIT SC SCH (18:33)
[2024-01-10] MEDS: NS (Normal Saline) 0.9% 1,000 ML IV ONE (21:18)
[2024-01-10] MEDS ORDERED: diphenhydrAMINE 50MG/ML VIAL IV PRN (22:10)
[2024-01-10] MEDS: LR 1,000 ML IV SCH (22:45)
[2024-01-10] MEDS: methylPREDNISolone 125MG 2ML VIAL IV ONE (22:45)
[2024-01-10] MEDS: NOREPINEPHRINE 4MG IN D5 250ML 4 MG in IV 1 EA IV SCH (22:58)
[2024-01-10] MEDS: LR 1,000 ML IV ONE (23:41)
[2024-01-10 23:53] LABS: BLOOD UREA NITROGEN 18 MG/DL (9-23); CALCIUM LEVEL 8.4 MG/DL (8.3-10.6); CARBON DIOXIDE LEVEL 20 MMOL/L (20-31); CHLORIDE LEVEL 106 MMOL/L (98-107); CREATININE FOR GFR 0.91 MG/DL (0.70-1.30); GLOMERULAR FILTRATION RATE > 60.0 (>42); GLUCOSE, FASTING 123 MG/DL (74-106); POTASSIUM SERUM 3.9 MMOL/L (3.5-5.1); SODIUM LEVEL 136 MMOL/L (136-145)
[2024-01-11] VITALS (55 sets, daily range): BP systolic 80–130; BP diastolic 44–60; TEMP 97.6–98.5; O2SAT 89–99
[2024-01-11 00:14] LABS: BASO % 0.3 % (0.0-1.0); EOS % 0.3 % (0.0-3.0); HEMATOCRIT 41.2 % (42.0-52.0); LYMPH # 1.7 10^3/uL (1.5-5.0); LYMPH % 11.3 % (24.0-44.0); MEAN CORPUSCULAR HEMOGLOBIN 31.5 pg (27.0-33.0); MEAN CORPUSCULAR HGB CONC 32.3 g/dl (32.0-36.5); MEAN CORPUSCULAR VOLUME 97.6 fl (80.0-96.0); MONO % 6.5 % (2.0-8.0); NEUTROPHILS # 12.3 10^3/uL (1.5-8.5); NEUTROPHILS % 81.1 % (36.0-66.0); PLATELET COUNT, AUTOMATED 369 10^3/uL (150-450); RED BLOOD COUNT 4.22 10^6/uL (4.30-6.10); WHITE BLOOD COUNT 15.1 10^3/uL (4.0-10.0)
[2024-01-11 00:24] LABS: HEMOGLOBIN 13.3 g/dl (13.5-17.5)
[2024-01-11] MEDS: PIPERACILLIN/TAZOBACTAM SOD 4.5 GM in DEXTROSE 5% (D5W) ADV/MINI-BAG 50 ML IV SCH (01:18)
[2024-01-11 05:03] LABS: BASO % 0.1 % (0.0-1.0); HEMATOCRIT 35.3 % (42.0-52.0); HEMOGLOBIN 11.7 g/dl (13.5-17.5); LYMPH # 0.4 10^3/uL (1.5-5.0); LYMPH % 3.4 % (24.0-44.0); MEAN CORPUSCULAR HEMOGLOBIN 31.5 pg (27.0-33.0); MEAN CORPUSCULAR HGB CONC 33.1 g/dl (32.0-36.5); MEAN CORPUSCULAR VOLUME 94.9 fl (80.0-96.0); MONO # 0.1 10^3/uL (0.0-0.8); MONO % 0.7 % (2.0-8.0); NEUTROPHILS # 9.9 10^3/uL (1.5-8.5); NEUTROPHILS % 95.5 % (36.0-66.0); PLATELET COUNT, AUTOMATED 366 10^3/uL (150-450); RED BLOOD COUNT 3.72 10^6/uL (4.30-6.10); WHITE BLOOD COUNT 10.4 10^3/uL (4.0-10.0)
[2024-01-11 05:27] LABS: ALBUMIN 2.1 G/DL (3.2-5.2); ALKALINE PHOSPHATASE 92 U/L (40-129); ALT/SGPT 17 U/L (7.0-40); AST/SGOT 20 U/L (<34); BILIRUBIN,TOTAL 0.6 MG/DL (0.3-1.2); BLOOD UREA NITROGEN 21 MG/DL (9-23); CALCIUM LEVEL 8.6 MG/DL (8.3-10.6); CARBON DIOXIDE LEVEL 23 MMOL/L (20-31); CHLORIDE LEVEL 103 MMOL/L (98-107); CREATININE FOR GFR 0.77 MG/DL (0.70-1.30); GLOMERULAR FILTRATION RATE > 60.0 (>42); GLUCOSE, FASTING 170 MG/DL (74-106); MAGNESIUM LEVEL 1.6 MG/DL (1.8-2.4); POTASSIUM SERUM 4.2 MMOL/L (3.5-5.1); SODIUM LEVEL 134 MMOL/L (136-145); TOTAL PROTEIN 5.1 G/DL (5.7-8.2)
[2024-01-11] MEDS: VANCOMYCIN 1,250 MG/250 ML IV BAG *LOAD IV ONE (05:52)
[2024-01-11] MEDS: MAG SULF 1GM/100ML (MAG RUN) 1 GM in IV 1 EA IV SCH (07:33)
[2024-01-11] MEDS: PHENYLEPHRINE HCL INJ 50 MG in D5W 495 ML IV SCH (10:00)
[2024-01-11] MEDS: methylPREDNISolone 40MG 1ML VIAL IV SCH (10:22)
[2024-01-11 11:06] LABS: PROCALCITONIN 0.23 ng/ml
[2024-01-11] MEDS ORDERED: ISOVUE-370 76% 100ML VIAL As Ordered ONE (12:10)
[2024-01-11] MEDS: LR 1,000 ML IV ONE (12:49)
[2024-01-11 13:17] LABS: HEMATOCRIT 30.2 % (42.0-52.0); HEMOGLOBIN 9.9 g/dl (13.5-17.5); LYMPH # 0.5 10^3/uL (1.5-5.0); LYMPH % 10.6 % (24.0-44.0); MEAN CORPUSCULAR HEMOGLOBIN 31.6 pg (27.0-33.0); MEAN CORPUSCULAR HGB CONC 32.8 g/dl (32.0-36.5); MEAN CORPUSCULAR VOLUME 96.5 fl (80.0-96.0); MONO # 0.1 10^3/uL (0.0-0.8); MONO % 1.1 % (2.0-8.0); NEUTROPHILS % 87.6 % (36.0-66.0); PLATELET COUNT, AUTOMATED 280 10^3/uL (150-450); RED BLOOD COUNT 3.13 10^6/uL (4.30-6.10); WHITE BLOOD COUNT 4.5 10^3/uL (4.0-10.0)
[2024-01-11 13:37] LABS: INR 1.66; PARTIAL THROMBOPLASTIN TIME 34.4 SECONDS (24.8-34.2); PROTHROMBIN TIME 19.8 SECONDS (12.5-14.5)
[2024-01-11] MEDS ORDERED: VANCOMYCIN 1,000MG/200 ML IV BAG IV SCH (14:00)
[2024-01-11 14:05] LABS: ALKALINE PHOSPHATASE 81 U/L (40-129); ALT/SGPT 14 U/L (7.0-40); AST/SGOT 16 U/L (<34); BILIRUBIN,TOTAL 0.5 MG/DL (0.3-1.2); BLOOD UREA NITROGEN 20 MG/DL (9-23); CALCIUM LEVEL 8.3 MG/DL (8.3-10.6); CARBON DIOXIDE LEVEL 24 MMOL/L (20-31); CHLORIDE LEVEL 101 MMOL/L (98-107); CREATININE FOR GFR 0.72 MG/DL (0.70-1.30); GLOMERULAR FILTRATION RATE > 60.0 (>42); GLUCOSE, FASTING 159 MG/DL (74-106); PHOSPHORUS LEVEL 3.6 MG/DL (2.4-5.1); POTASSIUM SERUM 3.9 MMOL/L (3.5-5.1); SODIUM LEVEL 135 MMOL/L (136-145); TOTAL PROTEIN 4.8 G/DL (5.7-8.2)
[2024-01-12] VITALS (16 sets, daily range): BP systolic 95–143; BP diastolic 48–63; TEMP 98–98.9; O2SAT 94–100
[2024-01-12 05:10] LABS: HEMATOCRIT 26.9 % (42.0-52.0); LYMPH # 0.5 10^3/uL (1.5-5.0); LYMPH % 8.6 % (24.0-44.0); MEAN CORPUSCULAR HGB CONC 33.5 g/dl (32.0-36.5); MEAN CORPUSCULAR VOLUME 95.7 fl (80.0-96.0); MONO # 0.2 10^3/uL (0.0-0.8); MONO % 3.3 % (2.0-8.0); NEUTROPHILS # 5.3 10^3/uL (1.5-8.5); NEUTROPHILS % 87.4 % (36.0-66.0); PLATELET COUNT, AUTOMATED 267 10^3/uL (150-450); RED BLOOD COUNT 2.81 10^6/uL (4.30-6.10); WHITE BLOOD COUNT 6.1 10^3/uL (4.0-10.0)
[2024-01-12 05:36] LABS: ALKALINE PHOSPHATASE 73 U/L (40-129); ALT/SGPT 13 U/L (7.0-40); AST/SGOT 12 U/L (<34); BILIRUBIN,TOTAL 0.5 MG/DL (0.3-1.2); BLOOD UREA NITROGEN 21 MG/DL (9-23); CALCIUM LEVEL 8.3 MG/DL (8.3-10.6); CARBON DIOXIDE LEVEL 25 MMOL/L (20-31); CHLORIDE LEVEL 105 MMOL/L (98-107); GLOMERULAR FILTRATION RATE > 60.0 (>42); GLUCOSE, FASTING 135 MG/DL (74-106); MAGNESIUM LEVEL 1.9 MG/DL (1.8-2.4); PHOSPHORUS LEVEL 3.5 MG/DL (2.4-5.1); POTASSIUM SERUM 3.7 MMOL/L (3.5-5.1); SODIUM LEVEL 137 MMOL/L (136-145); TOTAL PROTEIN 4.7 G/DL (5.7-8.2)
[2024-01-12] MEDS: predniSONE 20 MG TAB PO SCH (09:24)
[2024-01-13] VITALS: BP 119/56; TEMP 98.5; O2SAT 97
[2024-01-13 04:00] VITALS: BP 124/60; O2SAT 96
[2024-01-13 05:14] LABS: HEMATOCRIT 26.7 % (42.0-52.0); HEMOGLOBIN 8.8 g/dl (13.5-17.5); LYMPH # 1.1 10^3/uL (1.5-5.0); LYMPH % 17.9 % (24.0-44.0); MEAN CORPUSCULAR HEMOGLOBIN 31.7 pg (27.0-33.0); MONO # 0.7 10^3/uL (0.0-0.8); MONO % 11.2 % (2.0-8.0); NEUTROPHILS # 4.4 10^3/uL (1.5-8.5); NEUTROPHILS % 70.3 % (36.0-66.0); PLATELET COUNT, AUTOMATED 261 10^3/uL (150-450); RED BLOOD COUNT 2.78 10^6/uL (4.30-6.10); WHITE BLOOD COUNT 6.2 10^3/uL (4.0-10.0)
[2024-01-13 05:44] LABS: ALKALINE PHOSPHATASE 68 U/L (40-129); ALT/SGPT 17 U/L (7.0-40); AST/SGOT 14 U/L (<34); BILIRUBIN,TOTAL 0.5 MG/DL (0.3-1.2); BLOOD UREA NITROGEN 18 MG/DL (9-23); CALCIUM LEVEL 8.3 MG/DL (8.3-10.6); CARBON DIOXIDE LEVEL 29 MMOL/L (20-31); CHLORIDE LEVEL 104 MMOL/L (98-107); CREATININE FOR GFR 0.68 MG/DL (0.70-1.30); GLOMERULAR FILTRATION RATE > 60.0 (>42); GLUCOSE, FASTING 111 MG/DL (74-106); MAGNESIUM LEVEL 1.8 MG/DL (1.8-2.4); POTASSIUM SERUM 3.1 MMOL/L (3.5-5.1); SODIUM LEVEL 137 MMOL/L (136-145)
[2024-01-13] MEDS: POTASSIUM CHLORIDE 10% LIQ 20MEQ/15ML UDC PO ONE (06:16)
[2024-01-13 08:00] VITALS: BP 134/61; TEMP 98.4; O2SAT 83
[2024-01-13 12:00] VITALS: BP 155/67; TEMP 98.4; O2SAT 94
[2024-01-13 16:00] VITALS: BP 126/61; TEMP 98; O2SAT 96
[2024-01-13 20:00] VITALS: BP 111/52; TEMP 97; O2SAT 97
[2024-01-13] MEDS: KCL 20MEQ IN 100ML SWI (KRUN) 20 MEQ in IV 1 EA IV ONE (20:48)
[2024-01-14] VITALS: BP 129/60; TEMP 97.7; O2SAT 95
[2024-01-14 04:00] VITALS: BP 134/63; TEMP 98.2; O2SAT 98
[2024-01-14 06:21] LABS: BASO % 0.1 % (0.0-1.0); EOS % 0.1 % (0.0-3.0); HEMATOCRIT 28.6 % (42.0-52.0); HEMOGLOBIN 9.4 g/dl (13.5-17.5); LYMPH # 1.4 10^3/uL (1.5-5.0); LYMPH % 19.5 % (24.0-44.0); MEAN CORPUSCULAR HGB CONC 32.9 g/dl (32.0-36.5); MEAN CORPUSCULAR VOLUME 97.3 fl (80.0-96.0); MONO # 0.8 10^3/uL (0.0-0.8); MONO % 10.9 % (2.0-8.0); NEUTROPHILS # 4.8 10^3/uL (1.5-8.5); PLATELET COUNT, AUTOMATED 285 10^3/uL (150-450); RED BLOOD COUNT 2.94 10^6/uL (4.30-6.10); WHITE BLOOD COUNT 6.9 10^3/uL (4.0-10.0)
[2024-01-14 06:48] LABS: ALKALINE PHOSPHATASE 66 U/L (40-129); ALT/SGPT 14 U/L (7.0-40); AST/SGOT 12 U/L (<34); BILIRUBIN,TOTAL 0.4 MG/DL (0.3-1.2); BLOOD UREA NITROGEN 20 MG/DL (9-23); CALCIUM LEVEL 8.2 MG/DL (8.3-10.6); CARBON DIOXIDE LEVEL 28 MMOL/L (20-31); CHLORIDE LEVEL 107 MMOL/L (98-107); CREATININE FOR GFR 0.69 MG/DL (0.70-1.30); GLOMERULAR FILTRATION RATE > 60.0 (>42); GLUCOSE, FASTING 106 MG/DL (74-106); MAGNESIUM LEVEL 1.8 MG/DL (1.8-2.4); POTASSIUM SERUM 3.5 MMOL/L (3.5-5.1); SODIUM LEVEL 140 MMOL/L (136-145); TOTAL PROTEIN 4.9 G/DL (5.7-8.2)
[2024-01-14 07:40] VITALS: BP 139/77
[2024-01-14 08:00] VITALS: BP 131/62; TEMP 98; O2SAT 97
[2024-01-14] MEDS: KCL 20MEQ IN 100ML SWI (KRUN) 20 MEQ in IV 1 EA IV ONE (09:19)
[2024-01-14 16:00] VITALS: BP 128/58; TEMP 97.9; O2SAT 96
[2024-01-14 19:52] VITALS: BP 134/63; TEMP 98.8; O2SAT 96
[2024-01-15 04:28] VITALS: BP 158/72; TEMP 98; O2SAT 96
[2024-01-15 05:23] LABS: EOS % 0.1 % (0.0-3.0); HEMATOCRIT 30.8 % (42.0-52.0); HEMOGLOBIN 10.1 g/dl (13.5-17.5); LYMPH # 1.3 10^3/uL (1.5-5.0); MEAN CORPUSCULAR HEMOGLOBIN 31.9 pg (27.0-33.0); MEAN CORPUSCULAR HGB CONC 32.8 g/dl (32.0-36.5); MEAN CORPUSCULAR VOLUME 97.2 fl (80.0-96.0); MONO # 0.7 10^3/uL (0.0-0.8); MONO % 8.7 % (2.0-8.0); NEUTROPHILS # 5.7 10^3/uL (1.5-8.5); NEUTROPHILS % 73.7 % (36.0-66.0); PLATELET COUNT, AUTOMATED 301 10^3/uL (150-450); RED BLOOD COUNT 3.17 10^6/uL (4.30-6.10); WHITE BLOOD COUNT 7.7 10^3/uL (4.0-10.0)
[2024-01-15 05:42] LABS: ALBUMIN 2.2 G/DL (3.2-5.2); ALKALINE PHOSPHATASE 67 U/L (40-129); ALT/SGPT 12 U/L (7.0-40); AST/SGOT 8 U/L (<34); BILIRUBIN,TOTAL 0.3 MG/DL (0.3-1.2); BLOOD UREA NITROGEN 20 MG/DL (9-23); CALCIUM LEVEL 8.1 MG/DL (8.3-10.6); CARBON DIOXIDE LEVEL 28 MMOL/L (20-31); CHLORIDE LEVEL 108 MMOL/L (98-107); CREATININE FOR GFR 0.73 MG/DL (0.70-1.30); GLOMERULAR FILTRATION RATE > 60.0 (>42); GLUCOSE, FASTING 112 MG/DL (74-106); MAGNESIUM LEVEL 1.7 MG/DL (1.8-2.4); POTASSIUM SERUM 3.8 MMOL/L (3.5-5.1); SODIUM LEVEL 141 MMOL/L (136-145); TOTAL PROTEIN 5.1 G/DL (5.7-8.2)
[2024-01-15 08:00] VITALS: BP 145/65; TEMP 98.1; O2SAT 94
[2024-01-15 11:15] LABS: APPEARANCE, URINE MANUAL TURBID (CLEAR); COLOR, URINE MANUAL AMBER (YELLOW)
[2024-01-15 11:16] LABS: BILIRUBIN, URINE MANUAL NEGATIVE (NEGATIVE); BLOOD URINE MANUAL POSITIVE (NEGATIVE); GLUCOSE, URINE (UA) MANUAL NEGATIVE (NEGATIVE); KETONE, URINE MANUAL NEGATIVE (NEGATIVE); NITRITE, URINE MANUAL POSITIVE (NEGATIVE); PROTEIN, URINE MANUAL 2+ mg/dL (NEGATIVE); UROBILINOGEN, URINE MANUAL NORMAL (NORMAL)
[2024-01-15 11:18] LABS: BACTERIA, URINE LARGE AMOUNT; LEUKOCYTE ESTERASE, URINE MAN POSITIVE (NEGATIVE); RBC, URINE TNTC /hpf (0-3); SQUAMOUS EPITHELIAL CELL URINE NONE SEEN /hpf (SMALL AMT)
[2024-01-15 11:19] LABS: HYALINE CAST, URINE NONE SEEN /lpf (0-1)
[2024-01-15] MEDS: POTASSIUM CHLORIDE 10MEQ SR TABLET PO SCH (12:08)
[2024-01-15 16:00] VITALS: BP 169/77; TEMP 97; O2SAT 95
[2024-01-15 20:00] VITALS: BP 146/64; TEMP 97; O2SAT 95
[2024-01-16 04:00] VITALS: BP 159/76; TEMP 98.1; O2SAT 96
[2024-01-16] MEDS: SODIUM CHLORIDE 0.9% INJ 10 ML SYR IV SCH (05:59)
[2024-01-16 08:00] VITALS: BP 164/78; TEMP 98.3; O2SAT 97
[2024-01-16 11:06] LABS: HEMATOCRIT 29.7 % (42.0-52.0); HEMOGLOBIN 9.7 g/dl (13.5-17.5); MEAN CORPUSCULAR HEMOGLOBIN 31.7 pg (27.0-33.0); MEAN CORPUSCULAR HGB CONC 32.7 g/dl (32.0-36.5); MEAN CORPUSCULAR VOLUME 97.1 fl (80.0-96.0); PLATELET COUNT, AUTOMATED 324 10^3/uL (150-450); RED BLOOD COUNT 3.06 10^6/uL (4.30-6.10); WHITE BLOOD COUNT 8.8 10^3/uL (4.0-10.0)
[2024-01-16 11:31] LABS: BLOOD UREA NITROGEN 20 MG/DL (9-23); CALCIUM LEVEL 8.2 MG/DL (8.3-10.6); CARBON DIOXIDE LEVEL 29 MMOL/L (20-31); CHLORIDE LEVEL 108 MMOL/L (98-107); CREATININE FOR GFR 0.61 MG/DL (0.70-1.30); GLOMERULAR FILTRATION RATE > 60.0 (>42); GLUCOSE, FASTING 152 MG/DL (74-106); MAGNESIUM LEVEL 1.6 MG/DL (1.8-2.4); POTASSIUM SERUM 3.8 MMOL/L (3.5-5.1); SODIUM LEVEL 142 MMOL/L (136-145)
[2024-01-16] MEDS: MAG SULF 1GM/100ML (MAG RUN) 1 GM in IV 1 EA IV SCH ×2 (13:10→21:40)
[2024-01-16 13:35] LABS: HEMATOCRIT 30.8 % (42.0-52.0); HEMOGLOBIN 10.2 g/dl (13.5-17.5)
[2024-01-16 19:39] VITALS: BP 140/73; TEMP 98.3; O2SAT 98
[2024-01-16 20:41] LABS: HEMATOCRIT 28.9 % (42.0-52.0); HEMOGLOBIN 9.5 g/dl (13.5-17.5); MEAN CORPUSCULAR HEMOGLOBIN 31.9 pg (27.0-33.0); MEAN CORPUSCULAR HGB CONC 32.9 g/dl (32.0-36.5); PLATELET COUNT, AUTOMATED 305 10^3/uL (150-450); RED BLOOD COUNT 2.98 10^6/uL (4.30-6.10); WHITE BLOOD COUNT 8.6 10^3/uL (4.0-10.0)
[2024-01-17 04:00] VITALS: BP 145/70; TEMP 98; O2SAT 98
[2024-01-17 04:19] LABS: HEMATOCRIT 27.5 % (42.0-52.0); HEMOGLOBIN 9.1 g/dl (13.5-17.5); MEAN CORPUSCULAR HEMOGLOBIN 31.9 pg (27.0-33.0); MEAN CORPUSCULAR HGB CONC 33.1 g/dl (32.0-36.5); MEAN CORPUSCULAR VOLUME 96.5 fl (80.0-96.0); PLATELET COUNT, AUTOMATED 273 10^3/uL (150-450); RED BLOOD COUNT 2.85 10^6/uL (4.30-6.10); WHITE BLOOD COUNT 8.4 10^3/uL (4.0-10.0)
[2024-01-17 04:48] LABS: BLOOD UREA NITROGEN 20 MG/DL (9-23); CALCIUM LEVEL 7.9 MG/DL (8.3-10.6); CARBON DIOXIDE LEVEL 30 MMOL/L (20-31); CHLORIDE LEVEL 106 MMOL/L (98-107); CREATININE FOR GFR 0.59 MG/DL (0.70-1.30); GLOMERULAR FILTRATION RATE > 60.0 (>42); GLUCOSE, FASTING 95 MG/DL (74-106); POTASSIUM SERUM 4.3 MMOL/L (3.5-5.1); SODIUM LEVEL 141 MMOL/L (136-145)
[2024-01-17 08:00] VITALS: BP 150/70; TEMP 98.3; O2SAT 97
[2024-01-17 11:30] VITALS: BP 135/56
[2024-01-17] MEDS: FUROSEMIDE 20 MG TAB PO SCH (11:34)
[2024-01-17 15:35] LABS: MAGNESIUM LEVEL 2.2 MG/DL (1.8-2.4)
[2024-01-17 21:00] VITALS: BP 148/67; TEMP 98; O2SAT 98
[2024-01-18 04:00] VITALS: BP 158/68; TEMP 97.6; O2SAT 96
[2024-01-18 04:44] LABS: HEMATOCRIT 27.2 % (42.0-52.0); HEMOGLOBIN 9.1 g/dl (13.5-17.5); MEAN CORPUSCULAR HEMOGLOBIN 32.2 pg (27.0-33.0); MEAN CORPUSCULAR HGB CONC 33.5 g/dl (32.0-36.5); MEAN CORPUSCULAR VOLUME 96.1 fl (80.0-96.0); PLATELET COUNT, AUTOMATED 275 10^3/uL (150-450); RED BLOOD COUNT 2.83 10^6/uL (4.30-6.10); WHITE BLOOD COUNT 9.3 10^3/uL (4.0-10.0)
[2024-01-18 05:13] LABS: BLOOD UREA NITROGEN 19 MG/DL (9-23); CARBON DIOXIDE LEVEL 29 MMOL/L (20-31); CHLORIDE LEVEL 106 MMOL/L (98-107); CREATININE FOR GFR 0.72 MG/DL (0.70-1.30); GLOMERULAR FILTRATION RATE > 60.0 (>42); GLUCOSE, FASTING 102 MG/DL (74-106); POTASSIUM SERUM 4.3 MMOL/L (3.5-5.1); SODIUM LEVEL 139 MMOL/L (136-145)
[2024-01-18 08:09] VITALS: BP 139/63; TEMP 99.2; O2SAT 98
[2024-01-18] MEDS: ASPIRIN 81MG CHEW TABLET PO SCH (09:07)
[2024-01-18 15:35] VITALS: BP 133/57; TEMP 97.9; O2SAT 95
[2024-01-18 20:00] VITALS: BP 142/62; TEMP 97.9; O2SAT 95
[2024-01-19 04:20] VITALS: BP 170/81; TEMP 97.7; O2SAT 96
[2024-01-19 04:42] VITALS: BP 186/98
[2024-01-19 04:54] LABS: HEMATOCRIT 27.7 % (42.0-52.0); MEAN CORPUSCULAR HEMOGLOBIN 30.8 pg (27.0-33.0); MEAN CORPUSCULAR HGB CONC 32.5 g/dl (32.0-36.5); MEAN CORPUSCULAR VOLUME 94.9 fl (80.0-96.0); PLATELET COUNT, AUTOMATED 297 10^3/uL (150-450); RED BLOOD COUNT 2.92 10^6/uL (4.30-6.10); WHITE BLOOD COUNT 9.2 10^3/uL (4.0-10.0)
[2024-01-19 05:18] LABS: BLOOD UREA NITROGEN 20 MG/DL (9-23); CALCIUM LEVEL 8.2 MG/DL (8.3-10.6); CARBON DIOXIDE LEVEL 28 MMOL/L (20-31); CHLORIDE LEVEL 106 MMOL/L (98-107); CREATININE FOR GFR 0.61 MG/DL (0.70-1.30); GLOMERULAR FILTRATION RATE > 60.0 (>42); GLUCOSE, FASTING 100 MG/DL (74-106); SODIUM LEVEL 138 MMOL/L (136-145)
[2024-01-19 06:10] VITALS: BP 142/70
[2024-01-19 09:00] VITALS: BP 138/68; TEMP 97.7; O2SAT 97
[2024-01-19 14:25] VITALS: BP 152/74; TEMP 97.5; O2SAT 96
[2024-01-19 20:34] VITALS: BP 167/80; TEMP 97.9; O2SAT 99
[2024-01-19] MEDS: APIXABAN 5 MG TAB (ELIQUIS) PO SCH (20:41)
[2024-01-20] MEDS: TAMSULOSIN 0.4 MG CAP PO ONE (01:01)
[2024-01-20 02:40] VITALS: BP 190/86
[2024-01-20 03:40] LABS: HEMATOCRIT 30.9 % (42.0-52.0); HEMOGLOBIN 10.1 g/dl (13.5-17.5)
[2024-01-20] MEDS: amLODIPine 5 MG TAB PO ONE (03:59)
[2024-01-20 04:00] VITALS: TEMP 97.5; O2SAT 97
[2024-01-20 06:52] VITALS: BP 182/84
[2024-01-20 07:12] LABS: HEMATOCRIT 30.6 % (42.0-52.0); HEMOGLOBIN 10.4 g/dl (13.5-17.5); MEAN CORPUSCULAR HEMOGLOBIN 31.6 pg (27.0-33.0); PLATELET COUNT, AUTOMATED 354 10^3/uL (150-450); RED BLOOD COUNT 3.29 10^6/uL (4.30-6.10); WHITE BLOOD COUNT 15.5 10^3/uL (4.0-10.0)
[2024-01-20 07:41] LABS: BLOOD UREA NITROGEN 19 MG/DL (9-23); CALCIUM LEVEL 8.9 MG/DL (8.3-10.6); CARBON DIOXIDE LEVEL 28 MMOL/L (20-31); CHLORIDE LEVEL 104 MMOL/L (98-107); CREATININE FOR GFR 0.62 MG/DL (0.70-1.30); GLOMERULAR FILTRATION RATE > 60.0 (>42); GLUCOSE, FASTING 116 MG/DL (74-106); POTASSIUM SERUM 3.4 MMOL/L (3.5-5.1); SODIUM LEVEL 139 MMOL/L (136-145)
[2024-01-20 08:40] VITALS: BP 116/48
[2024-01-20 12:00] VITALS: BP 120/48; TEMP 97.7; O2SAT 94
[2024-01-20 19:50] VITALS: BP 122/50; TEMP 98.1; O2SAT 94
[2024-01-21 04:30] VITALS: BP 133/52; TEMP 97.9; O2SAT 91
[2024-01-21 06:08] LABS: HEMATOCRIT 27.4 % (42.0-52.0); HEMOGLOBIN 8.8 g/dl (13.5-17.5); MEAN CORPUSCULAR HEMOGLOBIN 31.3 pg (27.0-33.0); MEAN CORPUSCULAR HGB CONC 32.1 g/dl (32.0-36.5); MEAN CORPUSCULAR VOLUME 97.5 fl (80.0-96.0); PLATELET COUNT, AUTOMATED 259 10^3/uL (150-450); RED BLOOD COUNT 2.81 10^6/uL (4.30-6.10); WHITE BLOOD COUNT 12.4 10^3/uL (4.0-10.0)
[2024-01-21 06:32] LABS: BLOOD UREA NITROGEN 22 MG/DL (9-23); CALCIUM LEVEL 8.1 MG/DL (8.3-10.6); CARBON DIOXIDE LEVEL 30 MMOL/L (20-31); CHLORIDE LEVEL 106 MMOL/L (98-107); CREATININE FOR GFR 0.67 MG/DL (0.70-1.30); GLOMERULAR FILTRATION RATE > 60.0 (>42); GLUCOSE, FASTING 106 MG/DL (74-106); POTASSIUM SERUM 3.4 MMOL/L (3.5-5.1); SODIUM LEVEL 143 MMOL/L (136-145)
[2024-01-21] MEDS: POTASSIUM CHLORIDE 10MEQ SR TABLET PO ONE (07:07)
[2024-01-21] MEDS: MIRALAX *UNIT DOSE* 17GM PACKET PO SCH (09:00)
[2024-01-21] MEDS: BISACODYL 10MG SUPP PR SCH (09:00)
[2024-01-21] MEDS ORDERED: POTASSIUM CHLORIDE 10MEQ SR TABLET PO SCH (09:00)
[2024-01-21] MEDS: TAMSULOSIN 0.4 MG CAP PO SCH (09:59)
[2024-01-21 11:11] LABS: MAGNESIUM LEVEL 1.8 MG/DL (1.8-2.4)
[2024-01-21 12:00] VITALS: BP 125/52; TEMP 97.9; O2SAT 96
[2024-01-21] MEDS: POTASSIUM CHLORIDE 10MEQ SR TABLET PO SCH (13:50)
[2024-01-21] MEDS: APIXABAN 5 MG TAB (ELIQUIS) PO SCH (13:51)
[2024-01-21 19:38] VITALS: BP 146/63; TEMP 97.9; O2SAT 94
[2024-01-22 04:08] VITALS: BP 147/68; TEMP 97.7; O2SAT 95
[2024-01-22 05:13] LABS: HEMATOCRIT 26.3 % (42.0-52.0); HEMOGLOBIN 8.5 g/dl (13.5-17.5); MEAN CORPUSCULAR HEMOGLOBIN 31.5 pg (27.0-33.0); MEAN CORPUSCULAR HGB CONC 32.3 g/dl (32.0-36.5); MEAN CORPUSCULAR VOLUME 97.4 fl (80.0-96.0); PLATELET COUNT, AUTOMATED 230 10^3/uL (150-450); WHITE BLOOD COUNT 12.6 10^3/uL (4.0-10.0)
[2024-01-22 05:37] LABS: BLOOD UREA NITROGEN 23 MG/DL (9-23); CALCIUM LEVEL 8.1 MG/DL (8.3-10.6); CARBON DIOXIDE LEVEL 28 MMOL/L (20-31); CHLORIDE LEVEL 106 MMOL/L (98-107); CREATININE FOR GFR 0.61 MG/DL (0.70-1.30); GLOMERULAR FILTRATION RATE > 60.0 (>42); GLUCOSE, FASTING 116 MG/DL (74-106); SODIUM LEVEL 140 MMOL/L (136-145)
[2024-01-22] MEDS: ASPIRIN 81MG CHEW TABLET PEG SCH (09:00)
[2024-01-22 12:00] VITALS: BP 145/63; TEMP 97.7; O2SAT 95
[2024-01-22 20:24] VITALS: BP 147/63; TEMP 98.1; O2SAT 96
[2024-01-23 04:00] VITALS: BP 145/68; TEMP 97.5; O2SAT 96
[2024-01-23 05:57] LABS: HEMATOCRIT 27.6 % (42.0-52.0); HEMOGLOBIN 9.1 g/dl (13.5-17.5); MEAN CORPUSCULAR HEMOGLOBIN 31.3 pg (27.0-33.0); MEAN CORPUSCULAR VOLUME 94.8 fl (80.0-96.0); PLATELET COUNT, AUTOMATED 249 10^3/uL (150-450); RED BLOOD COUNT 2.91 10^6/uL (4.30-6.10); WHITE BLOOD COUNT 10.8 10^3/uL (4.0-10.0)
[2024-01-23 06:31] LABS: BLOOD UREA NITROGEN 22 MG/DL (9-23); CALCIUM LEVEL 8.1 MG/DL (8.3-10.6); CARBON DIOXIDE LEVEL 28 MMOL/L (20-31); CHLORIDE LEVEL 105 MMOL/L (98-107); CREATININE FOR GFR 0.57 MG/DL (0.70-1.30); GLOMERULAR FILTRATION RATE > 60.0 (>42); GLUCOSE, FASTING 98 MG/DL (74-106); POTASSIUM SERUM 3.8 MMOL/L (3.5-5.1); SODIUM LEVEL 138 MMOL/L (136-145)
[2024-01-23 08:17] VITALS: BP 170/74
[2024-01-23 10:31] VITALS: BP 135/58
[2024-01-23] MEDS: FUROSEMIDE 40MG/4ML VIAL IV ONE (11:32)
[2024-01-23] MEDS: SODIUM CHLORIDE 0.9% INJ 10 ML SYR IV PRN (11:32)
[2024-01-23 12:00] VITALS: BP 151/59; TEMP 97.5; O2SAT 97
[2024-01-23] MEDS ORDERED: POTA-136 PO (12:10)
[2024-01-23] MEDS ORDERED: ACET-683 PO (12:10)
[2024-01-23] MEDS ORDERED: FURO20TA2 PO (12:10)
[2024-01-23] MEDS ORDERED: FLOM0.4C39 PO (12:10)
[2024-01-23] MEDS ORDERED: OMEP-173 PO (12:10)
[2024-01-23] MEDS ORDERED: PRED10TA2 PO (12:10)
[2024-01-23] MEDS ORDERED: MIRA33506 PO (12:10)
[2024-01-23] MEDS ORDERED: ELIQ5TAB PO (17:06)
[2024-01-25] MEDS ORDERED: FENO48TA8 PO (11:40)
== END 2024-01-23 14:03 | disposition home health service (06) | DRG 391 ==
LOC: M MSPAV 15:12 → M ICU 01-10 22:51 → M MSPAV 01-18 14:54
PROVIDERS: ADMIT General Practice; ATTEND Internal Medicine Nephrology
DX: K59.81 Ogilvie syndrome (principal); J18.9 Pneumonia, unspecified organism; J69.0 Pneumonitis due to inhalation of food and vomit; I69.351 Hemiplegia and hemiparesis following cerebral infarction affecting right dominant side; I50.22 Chronic systolic (congestive) heart failure; I48.0 Paroxysmal atrial fibrillation; I25.10 Atherosclerotic heart disease of native coronary artery without angina pectoris; E78.5 Hyperlipidemia, unspecified; I11.0 Hypertensive heart disease with heart failure; R33.9 Retention of urine, unspecified; D63.8 Anemia in other chronic diseases classified elsewhere; N40.0 Benign prostatic hyperplasia without lower urinary tract symptoms; M19.90 Unspecified osteoarthritis, unspecified site; Z79.01 Long term (current) use of anticoagulants; R31.0 Gross hematuria; I25.2 Old myocardial infarction; Z79.82 Long term (current) use of aspirin; Z79.899 Other long term (current) drug therapy; E87.6 Hypokalemia; Z86.73 Personal history of transient ischemic attack (TIA), and cerebral infarction without residual deficits; R31.9 Hematuria, unspecified